=== PATIENT | male | born 1965 | race African-American/Black ===

== ENCOUNTER 2018-04-03 11:31 | Emergency (ER) | payer MEDICARE, MEDICAID ==
[~2018-04-03] VITALS: Ht 170.2 cm; Wt 70.0 kg
[2018-04-03] MEDS ORDERED: ACETAMINOPHEN 500MG TABLET PO ONE (12:15)
[2018-04-03 13:17] LABS: BASOPHILS % 0.5 % (0.0-2.0); EOSINOPHILS % 0.7 % (0.0-5.0); HEMATOCRIT. 38.7 % (42.0-52.0); HEMOGLOBIN. 12.9 g/dL (14.0-18.0); LYMPHOCYTES % 42.7 % (20.0-50.0); MEAN CORPUSCULAR VOLUME 99.1 fL (80.0-94.0); MEAN PLATELET VOLUME 8.1 fl (7.4-10.4); MONOCYTES % 13.1 % (2.0-8.0); PLATELET 176 x1000/uL (130-400); RED BLOOD CELL COUNT 3.91 mill/uL (4.7-6.1); RED CELL DISTRIBUTION WIDTH 13.1 % (11.6-14.6)
[2018-04-03 13:24] LABS: CHLORIDE 110 mEq/L (98-107)
[2018-04-03 14:52] VITALS: BP 164/100
== END 2018-04-03 15:01 | disposition home or self-care (01) ==
LOC: ER 12:13
DX: S62.512A Displaced fracture of proximal phalanx of left thumb, initial encounter for closed fracture (principal); F17.200 Nicotine dependence, unspecified, uncomplicated; W19.XXXA Unspecified fall, initial encounter; Y93.9 Activity, unspecified; Y92.9 Unspecified place or not applicable
CPT/HCPCS: 36415; 73130; 80048; 85025; 99285